=== PATIENT | female | born 1935 | race Caucasian/White ===

== ENCOUNTER 2019-01-27 09:40 | Day surgery (SDC) | payer MEDICARE, OTHER ==
[~2019-01-27] VITALS: Ht 149.9 cm; Wt 70.7 kg
[~2019-01-27 09:40] MED LIST: ASPI-650 PO; ATEN50TA PO; IBUP-727 PO; LORA-407 PO; RANI150C11 PO; SIMV20TA2 PO
[2019-01-27] MEDS ORDERED: LIDOCAINE 2% (SDV) 5 ML INJ ONE (11:00)
--- NOTE | 2019-01-27 11:11 | PREAC ---
Date/Time of Note Date/Time of Note DATE: 01/27/19 TIME: 11:09 Anesthesia Eval and Record Evaluation Time Pre-Procedure Interview DATE: 01/27/19 TIME: 11:09 Age 83 Sex female NPO: 8 hrs Preoperative diagnosis GERD Planned procedure EGD Past Medical History Past Medical History: Includes Cardio: HTN, Dyslipidemia Musculoskeletal: Osteoarthritis GI: GERD Surgery & Anesthesia Issues No known issue Meds Anticoagulation: No Beta Mildred within 24 hr: Yes Reported Medications Ibuprofen (Motrin) 600 Mg Tablet, 600 MG PO Q8 03/08/12 Loratadine (Claritin) 10 Mg Tablet, 10 MG PO DAILY 03/08/12 Ranitidine Hcl (Ranitidine Hcl) 150 Mg Capsule, 150 MG PO DAILY 03/08/12 Simvastatin (Simvastatin) 20 Mg Tablet, 20 MG PO DAILY 03/08/12 Aspirin (Aspirin) 81 Mg Tablet, 81 MG PO DAILY 03/08/12 Atenolol* (Atenolol*) 50 Mg Tablet, 50 MG PO DAILY, 0 Refills 06/12/10 Meds reviewed: Yes Allergies Coded Allergies: No Known Drug Allergies (Verified Allergy, Unknown, 03/08/12) Allergies Reviewed: Yes Labs/Studies Labs Reviewed: Reviewed by anesthesiologist test: N/A Pre-procedure Exam Airway: Adequate mouth opening, Adequate thyromental dist Mallampati: Mallampati II Teeth: Normal Lung: Normal Heart: Normal ASA Physical Status ASA physical status: 2 Emergency: None Planned Anesthetic General/MAC: MAC Planned Pain Management Parenteral pain med Pre-operative Attestations Prior to commencing anesthesia and surgery, the patient was re-evaluated, there was verification of: *The patient's identity *The results of appropriate recent lab work and preoperative vital signs *The above evaluation not changing prior to induction *Anesthetic plan, risk benefits, alternative and complications discussed with patient/family; questions answered; patient/family understands, accepts and wishes to proceed. GOMEZ BLACK January 27, 2019 11:11
[2019-01-27] MEDS ORDERED: PROPOFOL 40 ML ONE (11:15)
[2019-01-27 11:24] VITALS: Ht 149.9 cm; Wt 70.7 kg
[2019-01-27] MEDS ORDERED: EPHEDrine 25 MG/5 ML SYG IV PRN (11:30)
[2019-01-27] MEDS ORDERED: ONDANSETRON 4 MG INJ IV PRN (11:30)
[2019-01-27] MEDS ORDERED: KETOROLAC 30 MG INJ IV PRN (11:30)
[2019-01-27] MEDS ORDERED: FENTAnyl 50 MCG/ML VIAL IV PRN (11:30)
[2019-01-27] MEDS ORDERED: LABETALOL HCL 20MG INJ IV PRN (11:30)
[2019-01-27] MEDS ORDERED: hydrALAzine 20 MG INJ IV PRN (11:30)
[2019-01-27 11:31] VITALS: BP 169/70; PULSE 71; RESP 18
[2019-01-27 12:00] VITALS: BP 167/76; PULSE 90; RESP 20
[2019-01-27 12:07] VITALS: BP 151/71; PULSE 92; RESP 20
--- NOTE | 2019-01-27 12:54 | PAC ---
Date/Time of Note Date/Time of Note DATE: 01/27/19 TIME: 12:54 Post-Anesthesia Notes Post-Anesthesia Note Last documented vital signs Vital Signs Date Temp Pulse Resp B/P (MAP) Pulse Ox O2 O2 Flow FiO2 Time Delivery Rate 01/27/19 97.6 71 18 169/70 99 Room Air 12:31 (103) Activity: WNL Respiratory function: WNL Cardiovascular function: WNL Mental status: Baseline Pain reasonably controlled: Yes Hydration appropriate: Yes Nausea/Vomiting absent: Yes GOMEZ BLACK January 27, 2019 12:54
[2019-01-27 12:59] VITALS: BP 170/72; PULSE 74; RESP 18
== END 2019-01-27 14:04 | disposition home or self-care (01) ==
LOC: GIL 09:40
PROVIDERS: ATTEND Internal Medicine Gastroenterology
DX: K64.8 Other hemorrhoids (principal); K64.4 Residual hemorrhoidal skin tags; K57.30 Diverticulosis of large intestine without perforation or abscess without bleeding; K29.60 Other gastritis without bleeding; I10 Essential (primary) hypertension
CPT/HCPCS: 88305; 88312